=== PATIENT | male | born 1960 | race Caucasian/White ===

== ENCOUNTER 2018-11-12 01:03 | Emergency (ER) | payer OTHER ==
[~2018-11-12] VITALS: Ht 175.3 cm; Wt 63.5 kg
[2018-11-12] MEDS ORDERED: HYDR1TAB94 PO (01:54)
[2018-11-12 02:47] LABS: BASOPHILS ABSOLUTE AUTO 0.03 K/mm3 (0.00-0.23); BASOPHILS PERCENT AUTO 0 % (0-2); EOSINOPHILS PERCENT AUTO 0 % (0-6); Hematocrit 38.3 % (37.0-53.0); Hemoglobin 12.9 g/dL (13.5-17.5); IMMATURE GRAN ABSOLUTE AUTO 0.09 K/mm3 (0.00-0.10); IMMATURE GRAN PERCENT AUTO 1 % (0-1); LYMPHOCYTES ABSOLUTE AUTO 0.43 K/mm3 (0.84-5.20); LYMPHOCYTES PERCENT AUTO 3 % (21-46); MONOCYTES ABSOLUTE AUTO 0.33 K/mm3 (0.16-1.47); MONOCYTES PERCENT AUTO 2 % (4-13); Mean Corpuscular HGB 30.6 pg (26.0-34.0); Mean Corpuscular HGB Conc 33.7 g/dL (31.5-36.5); Mean Corpuscular Volume 91 fL (80-100); Mean Platelet Volume 9.1 fL (9.1-12.4); NEUTROPHILS ABSOLUTE AUTO 15.75 K/mm3 (1.96-9.15); NEUTROPHILS PERCENT AUTO 95 % (41-73); Platelet Count 296 K/mm3 (150-400); RDW Coefficient Variation 12.5 % (11.7-14.2); RDW Standard Deviation 41.4 fL (35.1-46.3); Red Blood Cell Count 4.22 M/mm3 (4.30-5.90); White Blood Cell Count 16.63 K/mm3 (4.00-11.30)
[2018-11-12 03:07] LABS: Alanine Aminotransfer (ALT/SGP 14 U/L (12-78); Albumin/Globulin Ratio 0.9 (0.8-1.8); Alk Phos 98 U/L (50-136); Anion Gap 6 mmol/L (6-16); Aspartate Aminotrans (AST/SGOT 9 U/L (12-37); Bilirubin, Total 0.7 mg/dL (0.1-1.0); Blood Urea Nitrogen 21 mg/dL (8-24); Bun/Creatinine Ratio 19.3 (12.0-20.0); CO2, Blood 29 mmol/L (21-32); Calcium, Blood 8.1 mg/dL (8.5-10.1); Chloride, Blood 105 mmol/L (98-108); Creatinine, Blood 1.09 mg/dL (0.60-1.20); Globulin, Blood 3.4 g/dL (2.2-4.0); Glomerular Filtration Rate >60 (60-); Glucose, Blood 123 mg/dL (70-99); Potassium, Blood 3.7 mmol/L (3.5-5.5); Sodium, Blood 140 mmol/L (136-145); Total Protein, Blood 6.4 g/dL (6.4-8.2); Troponin I <0.015 ng/mL (0.000-0.040)
[2018-11-12 04:19] LABS: Source, Urine Clean Catch
[2018-11-12 04:23] LABS: Bilirubin, Urine Neg (Neg); Blood, Urine 4+ (Neg); Glucose Qualitative, Urine Neg (Neg); Ketones, Urine Neg (Neg); Leukocyte Esterase, Urine 3+ (Neg); Nitrite, Urine Neg (Neg); Protein, Urine 1+ (Neg); Urobilinogen, Urine NORM (Normal)
[2018-11-12 04:31] LABS: Appearance, Urine Hazy (Clear); Color, Urine Yellow (P-Yellow)
[2018-11-12 04:32] LABS: Bacteria Many /hpf; Red Blood Cells, Urine 0-2 /hpf (0-2); Squamous Epithelial Cells Not Seen /hpf (Few); White Blood Cells, Urine TNTC /hpf (0-5)
[2018-11-12] MEDS ORDERED: CEFD300 PO (04:38)
== END 2018-11-12 05:32 | disposition home or self-care (01) ==
LOC: ER 01:03
PROVIDERS: Emergency Medicine
DX: N39.0 Urinary tract infection, site not specified (principal); Z87.891 Personal history of nicotine dependence
CPT/HCPCS: 74176; 80053; 81001; 83690; 84484; 85025; 87077; 87086; 87186; 93005; 93010; 96361; 96365; 99284-25; J0696; J7030

== ENCOUNTER 2021-05-22 12:05 | Emergency (ER) | payer SELFPAY ==
[~2021-05-22] VITALS: Ht 175.3 cm; Wt 70.8 kg
[~2021-05-22 12:05] MED LIST: CEFD300 PO; HYDR1TAB94 PO
== END 2021-05-22 12:38 | disposition home or self-care (01) ==
LOC: ER 12:05
DX: U07.1 COVID-19 (principal); Z87.891 Personal history of nicotine dependence
CPT/HCPCS: 99283

== ENCOUNTER 2022-12-08 08:04 | Day surgery (SDC) | payer OTHER ==
[~2022-12-08] VITALS: Ht 175.3 cm; Wt 68.2 kg
[2022-12-08] VITALS (15 sets, daily range): BP systolic 97–121; BP diastolic 71–90
--- NOTE | 2022-12-08 08:46 | NUR ---
Ambulatory in Day Surgery History, Chart, Medications and Allergies reviewed before start of procedure. Pre-Op teaching done. Pt verbalizes understanding. Patient States Post-Procedure ride home has been arranged.
--- NOTE | 2022-12-08 09:41 | NUR ---
12/08/22 0942 Cisco Sifuentes HISTORY, CHART, MEDICATIONS AND ALLERGIES REVIEWED BEFORE START OF PROCEDURE. PATIENT CONFIRMS NPO STATUS AND AGREES WITH SCHEDULED PROCEDURE. 3-LEAD EKG REVIEWED WITH PHYSICIAN PRIOR TO START OF PROCEDURE. MONITOR INTACT WITH CONTINUOUS PULSE OXIMETRY,CAPNOGRAPHY, 3-LEAD EKG, INTERMITTENT BP. SUPPLEMENTAL O2 TO BE TITRATED THROUGHOUT PROCEDURE TO MAINTAIN O2 SATURATION ABOVE 90%. PATIENT DETERMINED TO BE ASA APPROPRIATE FOR PROPOFOL SEDATION PRIOR TO START OF PROCEDURE BY
--- NOTE | 2022-12-08 10:29 | NUR ---
1022- UP TO DRESS. GAIT STEADY. AT BEDSIDE. VSS. BREATHING RA. NO C/O VERBALIZED. Discharge instructions reviewed with patient. Patient verbalizes understanding. Copy given to patient to take home. Patient instructed not to drive for 24 hours due to sedation given. to drive home today.
== END 2022-12-08 10:27 | disposition home or self-care (01) ==
LOC: ORSCMMR 08:04 → ORD 09:00 → ORSCMMR 10:27
PROVIDERS: Internal Medicine Gastroenterology
PROC: 0DBL8ZX Excision of Transverse Colon, Via Natural or Artificial Opening Endoscopic, Diagnostic (ICD-10-PCS; principal; 2022-12-08 09:00)
DX: K62.3 Rectal prolapse (principal); K63.5 Polyp of colon; K63.89 Other specified diseases of intestine; K64.4 Residual hemorrhoidal skin tags; F17.210 Nicotine dependence, cigarettes, uncomplicated
CPT/HCPCS: 88305; J2250; J2704; J7120

== ENCOUNTER 2023-06-05 10:01 | Observation (INO) | payer OTHER ==
[~2023-06-05] VITALS: Ht 175.3 cm; Wt 75.7 kg
[2023-06-05] MEDS ORDERED: THERA-D2000 UNIT PO (10:21)
[2023-06-05] MEDS ORDERED: HYDHCL25 PO (10:21)
[2023-06-05] MEDS ORDERED: ACET500 PO (10:21)
[2023-06-05] MEDS ORDERED: BUPR150ER PO (10:22)
[2023-06-05 10:54] LABS: BASOPHILS ABSOLUTE AUTO 0.08 K/mm3 (0.00-0.23); BASOPHILS PERCENT AUTO 1 % (0-2); EOSINOPHILS ABSOLUTE AUTO 0.12 K/mm3 (0.00-0.68); EOSINOPHILS PERCENT AUTO 1 % (0-6); Hematocrit 42.8 % (37.0-53.0); Hemoglobin 14.9 g/dL (13.5-17.5); IMMATURE GRAN ABSOLUTE AUTO 0.07 K/mm3 (0.00-0.10); IMMATURE GRAN PERCENT AUTO 1 % (0-1); LYMPHOCYTES ABSOLUTE AUTO 2.06 K/mm3 (0.84-5.20); LYMPHOCYTES PERCENT AUTO 14 % (21-46); MONOCYTES ABSOLUTE AUTO 0.99 K/mm3 (0.16-1.47); MONOCYTES PERCENT AUTO 7 % (4-13); Mean Corpuscular HGB 31.2 pg (26.0-34.0); Mean Corpuscular HGB Conc 34.8 g/dL (31.5-36.5); Mean Corpuscular Volume 90 fL (80-100); Mean Platelet Volume 9.9 fL (9.1-12.4); NEUTROPHILS ABSOLUTE AUTO 11.78 K/mm3 (1.96-9.15); NEUTROPHILS PERCENT AUTO 78 % (41-73); Platelet Count 292 K/mm3 (150-400); RDW Coefficient Variation 12.5 % (11.7-14.2); Red Blood Cell Count 4.78 M/mm3 (4.30-5.90)
[2023-06-05 11:16] LABS: Ethanol (Alcohol), Blood, Med <3 mg/dL
[2023-06-05 11:19] LABS: Alanine Aminotransfer (ALT/SGP 17 U/L (12-78); Albumin, Blood 3.5 g/dL (3.4-5.0); Alk Phos 83 U/L (50-136); Anion Gap Unable to Calculate mmol/L (6-16); Aspartate Aminotrans (AST/SGOT 38 U/L (12-37); Bilirubin, Total 0.7 mg/dL (0.1-1.0); Blood Urea Nitrogen 14 mg/dL (8-24); Bun/Creatinine Ratio 13.2 (12.0-20.0); CO2, Blood 29 mmol/L (21-32); Chloride, Blood 112 mmol/L (98-108); Creatinine, Blood 1.06 mg/dL (0.60-1.20); Globulin, Blood 3.5 g/dL (2.2-4.0); Glomerular Filtration Rate 80 (60-); Glucose, Blood 88 mg/dL (70-99); Potassium, Blood 5.2 mmol/L (3.5-5.5); Sodium, Blood 140 mmol/L (136-145)
[2023-06-05] MEDS ORDERED: Aspirin 325 MG Tab PO ONE (13:15)
[2023-06-05] MEDS ORDERED: Acetaminophen 325 MG TABLET PO PRN (14:25)
[2023-06-05] MEDS ORDERED: Enoxaparin 40 MG/0.4 ML SYR SC SCH (15:00)
[2023-06-05 17:14] LABS: CHOL/HDL RATIO 3.8; Cholesterol 155 mg/dL (50-200); HDL Cholesterol 41 mg/dL (>39); LDL/HDL RATIO 2.3; Low Density Lipoprotein Chol 93 mg/dL (0-110); Triglycerides 104 mg/dL (30-160); Very Low Density Lipoprot Chol 20 mg/dL (6-32)
[2023-06-05] MEDS ORDERED: HyDROXyzine HCl 25 MG Tab PO PRN (17:25)
[2023-06-05 18:39] VITALS: BP 99/73
--- NOTE | 2023-06-05 19:25 | NUR ---
LATE ENTRY ER ADMIT 1814: RECEIVED REPORT FROM TABBY WASHINGTON 1824: RECEIVED PT FROM ER VIA GURNEY, PLACED IN BED, MADE COMFORTABLE, ORIENTED TO ROOM & UNIT ROUTINE. VSS. PLACED ON TELE. IS A&O X 4, PLEASANT & COOPERATIVE WITH ALL CARE. PIV IN R AC, PLACED BY [facility] TO TRANSFER TO [facility], IS WNL'S. REPORT GIVEN TO THAIS WASHINGTON.
[2023-06-05 19:50] VITALS: BP 104/67
[2023-06-06 04:22] VITALS: BP 100/72
[2023-06-06 05:55] LABS: BASOPHILS ABSOLUTE AUTO 0.06 K/mm3 (0.00-0.23); BASOPHILS PERCENT AUTO 1 % (0-2); EOSINOPHILS ABSOLUTE AUTO 0.18 K/mm3 (0.00-0.68); EOSINOPHILS PERCENT AUTO 3 % (0-6); Hematocrit 40.9 % (37.0-53.0); Hemoglobin 13.9 g/dL (13.5-17.5); IMMATURE GRAN ABSOLUTE AUTO 0.04 K/mm3 (0.00-0.10); IMMATURE GRAN PERCENT AUTO 1 % (0-1); LYMPHOCYTES ABSOLUTE AUTO 2.18 K/mm3 (0.84-5.20); LYMPHOCYTES PERCENT AUTO 38 % (21-46); MONOCYTES ABSOLUTE AUTO 0.58 K/mm3 (0.16-1.47); MONOCYTES PERCENT AUTO 10 % (4-13); Mean Corpuscular HGB 30.9 pg (26.0-34.0); Mean Corpuscular Volume 91 fL (80-100); Mean Platelet Volume 9.7 fL (9.1-12.4); NEUTROPHILS ABSOLUTE AUTO 2.77 K/mm3 (1.96-9.15); NEUTROPHILS PERCENT AUTO 48 % (41-73); Platelet Count 263 K/mm3 (150-400); RDW Coefficient Variation 12.4 % (11.7-14.2); RDW Standard Deviation 41.1 fL (35.1-46.3); White Blood Cell Count 5.81 K/mm3 (4.00-11.30)
--- NOTE | 2023-06-06 06:00 | NUR ---
PATIENT IS ALERT AND ORIENTED X4, ON ROOM AIR. WITH PIV LINE ON RIGHT AC PATENT AND INTACT. ON TELE SINUS RHYTHM 83. SLEPT WELL. NEEDS ATTENDED. NO NUMBNESS OR FACIAL DROOP NOTED. NO COMPLAINT MADE. CALL LIGHT WITHIN PATIENT'S REACH. WILL CONTINUE TO MONITOR.
[2023-06-06 06:32] LABS: Albumin, Blood 3.2 g/dL (3.4-5.0); Albumin/Globulin Ratio 1.1 (0.8-1.8); Bilirubin, Total 0.4 mg/dL (0.1-1.0); Bun/Creatinine Ratio 14.5 (12.0-20.0); Calcium, Blood 8.8 mg/dL (8.5-10.1); Creatinine, Blood 1.17 mg/dL (0.60-1.20); Potassium, Blood 4.2 mmol/L (3.5-5.5); Total Protein, Blood 6.2 g/dL (6.4-8.2)
[2023-06-06 08:06] VITALS: BP 108/71
[2023-06-06] MEDS ORDERED: Cholecalciferol 1000 Unit Tablet (=25MCG) PO SCH (09:00)
[2023-06-06] MEDS ORDERED: Atorvastatin 40 MG Tab PO SCH (09:00)
[2023-06-06] MEDS ORDERED: Nicotine 21 MG PATCH TOP SCH (09:00)
[2023-06-06] MEDS ORDERED: buPROPion HCL 150 MG TAB.SR.12H PO SCH (09:00)
[2023-06-06] MEDS ORDERED: Aspirin 81 MG Chew PO SCH (09:00)
[2023-06-06 12:34] LABS: Source, Urine Clean Catch
[2023-06-06 12:41] LABS: Appearance, Urine Clear (Clear); Bilirubin, Urine Neg (Neg); Blood, Urine 1+ (Neg); Color, Urine Yellow (P-Yellow); Glucose Qualitative, Urine Neg (Neg); Ketones, Urine Neg (Neg); Leukocyte Esterase, Urine Neg (Neg); Nitrite, Urine Neg (Neg); Protein, Urine Neg (Neg); Urobilinogen, Urine NORM (Normal)
[2023-06-06 14:02] LABS: Bacteria Few /hpf; Red Blood Cells, Urine 0-2 /hpf (0-2); Squamous Epithelial Cells Rare /hpf (Few); White Blood Cells, Urine 0-2 /hpf (0-5)
[2023-06-06 15:18] VITALS: BP 103/75
--- NOTE | 2023-06-06 17:09 | NUR ---
SHIFT SUMMARY: PATIENT A/OX4, VERY TALKATIVE, PLEASANT AND COOPERATIVE c CARE. PATIENT DENIES CP/PRESSURE, N/V, DIZZINESS, SOB AND GENERALIZED PAIN. PATIENT REPORTS SLIGHTLY NUMBNESS TO L SIDED FACE ONLY. PATIENT SENSATIONS INTACT AND STRENGTH ARE EQUAL TO ALL EXTREMITIES. NO DEFICIT NOTED. PATIENT ON TELE, ST/SR HR RANGES 60'S TO LOW 100'S BPM. PATIENT HAS BEEN AMBULATING IN ROOM INDEPENDENTLY. PATIENT HAS EXCELLENT APPETITE, ATE 100% c HIS MEALS AND REQUESTING SNACKS T/O SHIFT. PATIENT IS CONTINENCE OF BOWEL/BLADDER. PATIENT HAS NO COMPLAINTS THIS SHIFT. PATIENT RECEIVED SCHEDULED MEDS PER EMAR, VITAL SIGNS REVIEWED. PIV TO RAC SALINE LOCKED. CALL LIGHT IN REACH.
[2023-06-06 19:56] VITALS: BP 92/56
[2023-06-07 04:53] VITALS: BP 115/66
[2023-06-07 05:35] LABS: BASOPHILS ABSOLUTE AUTO 0.06 K/mm3 (0.00-0.23); BASOPHILS PERCENT AUTO 1 % (0-2); EOSINOPHILS ABSOLUTE AUTO 0.16 K/mm3 (0.00-0.68); EOSINOPHILS PERCENT AUTO 3 % (0-6); Hemoglobin 14.5 g/dL (13.5-17.5); IMMATURE GRAN ABSOLUTE AUTO 0.04 K/mm3 (0.00-0.10); IMMATURE GRAN PERCENT AUTO 1 % (0-1); LYMPHOCYTES ABSOLUTE AUTO 1.98 K/mm3 (0.84-5.20); LYMPHOCYTES PERCENT AUTO 33 % (21-46); MONOCYTES ABSOLUTE AUTO 0.61 K/mm3 (0.16-1.47); MONOCYTES PERCENT AUTO 10 % (4-13); Mean Corpuscular HGB 30.9 pg (26.0-34.0); Mean Corpuscular HGB Conc 34.5 g/dL (31.5-36.5); Mean Corpuscular Volume 90 fL (80-100); Mean Platelet Volume 9.7 fL (9.1-12.4); NEUTROPHILS ABSOLUTE AUTO 3.19 K/mm3 (1.96-9.15); NEUTROPHILS PERCENT AUTO 53 % (41-73); Platelet Count 276 K/mm3 (150-400); RDW Coefficient Variation 12.2 % (11.7-14.2); RDW Standard Deviation 40.2 fL (35.1-46.3); Red Blood Cell Count 4.69 M/mm3 (4.30-5.90); White Blood Cell Count 6.04 K/mm3 (4.00-11.30)
--- NOTE | 2023-06-07 06:13 | NUR ---
PATIENT IS ALERT AND ORIENTED. ON ROOM AIR AND TELE. WITH PIV LINE ON RIGHT AC PATENT AND INTACT. VITAL SIGNS TAKEN AND RECORDED. PATIENT IS INDEPENDENT. NO NUMBNESS, CHEST PAIN OR DIFFICULTY OF BREATHING. NEEDS ATTENDED. CALL LIGHT WITHIN PATIENT'S REACH. WILL CONTINUE TOO MONITOR.
[2023-06-07 06:36] LABS: Bun/Creatinine Ratio 18.8 (12.0-20.0); Calcium, Blood 9.2 mg/dL (8.5-10.1); Creatinine, Blood 1.12 mg/dL (0.60-1.20); Potassium, Blood 4.2 mmol/L (3.5-5.5)
[2023-06-07 07:44] VITALS: BP 103/74
[2023-06-07] MEDS ORDERED: NICO21TP TOP (14:10)
[2023-06-07] MEDS ORDERED: ASPI81CH PO (14:10)
[2023-06-07] MEDS ORDERED: ATOR80 PO (14:10)
--- NOTE | 2023-06-07 15:50 | NUR ---
SHIFT/DISCHARGE SUMMARY: PATIENT A/OX4, VERY TALKATIVE, APPEARS HAPPY, PLEASANT AND COOPERATIVE c CARE. PATIENT REPORTS "NO NUMBNESS TO L SIDE OF FACE" THIS SHIFT. PATIENT DENIES CP/PRESSURE, N/T, SOB, DIZZINESS AND GENERALIZED PAIN. PATIENT STILL ON TELE, SR HR IN THE 60'S BPM. PATIENT REPORTS "EAGER TO GO HOME" AND HAS BEEN WALKING AROUND THE UNIT T/O THE DAY. PATIENT HAS EXCELLENT APPETITE, CONTINENCE OF BOWELS/BLADDER AND AMBULATES TO BATHROOM INDEPENDENTLY. PATIENT RECEIVED SCHEDULED MEDS PER EMAR. VITAL SIGNS REVIEWED. PIV TO RAC DC'D. PATIENT DISCHARGE HOME. DISCHARGE INSTRUCTION PACKET GIVEN TO PATIENT. EDUCATE PATIENT REGARDING ADMITTING DX'S OF TIA, S/S, TX, NEW PRESCRIBED MEDS, DIET MODIFICATION AND TO FOLLOW c PCP. PATIENT VERBALIZED UNDERSTANDING AND NO FURTHER QUESTIONS. RX WAS FAXED TO PATIENT PREFERRED PHARMACY ([facility]). PATIENT WAS OFFERED TO BE TRANSPORTED VIA WHEELCHAIR, BUT DECLINE. PER PATIENT "I PREFERRED WALKING AND PLEASE I DON'T WANNA RIDE ON A WHEELCHAIR." ALL PATIENT PERSONAL BELONGINGS WERE SENT HOME c THE PATIENT. PATIENT LEFT THE ROOM AT 1500.
[2023-06-08 11:08] LABS: HSV 1 GLYCOPROTEIN G AB, IGG 0.24 IV (<=0.89); HSV 2 GLYCOPROTEIN G AB, IGG 2.14 IV (<=0.89)
[2023-06-08 12:17] LABS: RPR SCREEN with Reflex Non-reactive (Nonreactive)
[2023-06-08 15:36] LABS: HIV 1,2 COMBO ANTIGEN/ANTIBODY Negative (Negative)
[2023-06-08 21:38] LABS: VARICELLA-ZOSTER VIRUS AB,IGM 0.25 ISR (<=0.90)
[2023-06-08 21:47] LABS: ANTI-NUCLEAR AB ANA,IGG ELISA None Detected (None Detected)
[2023-06-09 13:11] LABS: T.PALLIDUM AB,IGG (FTA-ABS) Non Reactive (Non Reactive)
[2023-06-09 23:07] LABS: SSA-52 (RO52) (ENA) AB, IGG 9 AU/mL (0-40); SSA-60 (RO60) (ENA) AB, IGG 1 AU/mL (0-40); SSB (LA) (ENA) ANTIBODY, IGG 74 AU/mL (0-40)
== END 2023-06-07 15:10 | disposition home or self-care (01) ==
LOC: ER 10:01 → MEDS 10:02
PROVIDERS: Student in an Organized Health Care Education/Training Program; ADMIT Internal Medicine
DX: G45.9 Transient cerebral ischemic attack, unspecified (principal); E55.9 Vitamin D deficiency, unspecified; F41.9 Anxiety disorder, unspecified; D72.829 Elevated white blood cell count, unspecified; N48.6 Induration penis plastica; F17.210 Nicotine dependence, cigarettes, uncomplicated; Z88.0 Allergy status to penicillin; Z88.8 Allergy status to other drugs, medicaments and biological substances
CPT/HCPCS: 36415; 70450; 70487; 70551; 80048; 80053; 80061; 81001; 83735; 85025; 86038; 86235; 86430; 86592; 86618; 86695; 86696; 86780; 86787; 87389; 93005; 93010; 93306; 93880; 96372; 96372-59; 99285-25; A9270; G0378; J1650; Q9967

== ENCOUNTER 2025-04-06 06:10 | Day surgery (SDC) | payer OTHER ==
[~2025-04-06] VITALS: Ht 175.3 cm; Wt 65.0 kg
[~2025-04-06 06:10] MED LIST changes: +ACET500 PO; +ASPI81CH PO; +ATOR80 PO; +BUPR150ER PO; +HYDHCL25 PO; +NICO21TP TOP; +THERA-D2000 UNIT PO
[2025-04-06] MEDS ORDERED: CeFAZolin Sodium 2,000 MG VIAL ONE (06:28)
[2025-04-06] MEDS ORDERED: Tranexamic Acid 100 ML IV ONE ×2 (06:29→09:41)
[2025-04-06] MEDS ORDERED: VITAMIN B12500 MCG (06:38)
[2025-04-06] MEDS ORDERED: Midazolam HCl 1MG / ML 2ML Vial ONE (07:10)
[2025-04-06] MEDS ORDERED: FentaNYL Citrate 50 MCG/ML 2 ML Injection ONE (07:11)
[2025-04-06] MEDS ORDERED: Bupivacaine 0.5% W/EPI 1:200000 SDV 30 ML Vial ONE (07:11)
[2025-04-06] MEDS ORDERED: Bupivacaine 0.75% Inj 30 ML Vial ONE (07:23)
--- NOTE | 2025-04-06 07:29 | NUR ---
04/06/25 0729 Donna Palacios PT HAD INTERSCALENE BLOCK ON RIGHT SHOULDER IN PREOP T/0 AT 0715 START AT 0720 END AT 0724
[2025-04-06] MEDS ORDERED: Rocuronium Bromide 10 MG/ML 5ML Injection IV ONE (08:57)
[2025-04-06] MEDS ORDERED: Ondansetron HCl 2 MG / ML 2ML Vial ONE (08:57)
[2025-04-06] MEDS ORDERED: Dexamethasone Sod Phos 10 MG/ML 1ML VIAL ONE (08:57)
[2025-04-06] MEDS ORDERED: Ketorolac Tromethamine 30mg Vial ONE (08:57)
[2025-04-06] MEDS ORDERED: Phenylephrine HCl 100 MCG/ML-NS 10MLSYR (1MG/10ML) ONE (08:57)
[2025-04-06] MEDS ORDERED: Phenylephrine HCl 10mg/ml 1 ml Vial ONE (08:57)
[2025-04-06] MEDS ORDERED: Sugammadex Sodium 200 MG/2ML SDV (100 MG/ML) ONE (08:58)
--- NOTE | 2025-04-06 09:41 | NUR ---
04/06/25 0982 Iveth Garcia O2 BY NONREBREATHER AT 10% D/C'D AT 0936 SATS MAINTAINGING 96% AND ABOVE
--- NOTE | 2025-04-06 10:38 | NUR ---
04/06/25 1038 Aron Goldberg 1MG STARTED AT 0728 BY VIKAS EASTON.
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
[2025-04-06 11:56] VITALS: BP 122/65
== END 2025-04-06 12:29 | disposition home or self-care (01) ==
LOC: ORSCSDS 06:10
PROVIDERS: Orthopaedic Surgery
PROC: 0RRJ00Z Replacement of Right Shoulder Joint with Reverse Ball and Socket Synthetic Substitute, Open Approach (ICD-10-PCS; principal; 2025-04-06 07:30)
DX: M19.011 Primary osteoarthritis, right shoulder (principal); F17.210 Nicotine dependence, cigarettes, uncomplicated; E78.5 Hyperlipidemia, unspecified; Z79.899 Other long term (current) drug therapy
CPT/HCPCS: 73030; A9270; C1713; C1776; J0690; J1100; J1885; J2250; J2371; J2405; J2704; J3010; J7120